=== PATIENT | male | born 1940 | race Caucasian/White ===

== ENCOUNTER 2019-02-04 22:17 | Inpatient (IN) ==
[2019-02-05] MEDS ORDERED: Levalbuterol 1 PUFF INHALER IH SCH (01:00)
[2019-02-05] MEDS: Levalbuterol Neb 1.25 MG/3 ML IH SCH ×7 (01:15→23:36)
[2019-02-05] MEDS ORDERED: Naloxone 0.4 MG/ML INJ IVP PRN (03:55)
[2019-02-05 04:28] LABS: VBG HCO3 35 mEq/L (21-27); VBG PCO2 43 mmHg (41-51); VBG PH 7.52 pH Units (7.32-7.42); VBG PO2 187 mmHg (25-50)
[2019-02-05 04:50] LABS: Hemoglobin 7.8 g/dL (12.9-16.9)
[2019-02-05 04:52] LABS: Calcium 8.9 mg/dL (8.6-10.3); Immature Granulocytes % 1.1 % (0-4); Lymphocytes # 0.2 K/mcL (0.6-4.6); Lymphocytes % 3.1 %; Mean Corpuscular HGB Conc 27.9 g/dL (31.6-35.5); Mean Corpuscular Hemoglobin 23.5 pg (28.0-33.3); Mean Corpuscular Volume 84.3 fL (83.0-100.0); Mean Platelet Volume 9.6 fL (9.4-12.4); Monocytes # 0.1 K/mcL (0.0-1.3); Nucleated Red Blood Cells 0.3 /100 WBC (0); Platelet Count 275 K/mcL (140-400); Potassium 4.6 mEq/L (3.5-5.1); Red Blood Count 3.32 M/mcL (4.19-5.50); Segmented Neutrophils % 94.8 %; Troponin I 0.03 ng/mL (< 0.04); White Blood Count 7.1 K/mcL (4.3-11.1)
[2019-02-05] MEDS ORDERED: Albuterol 2.5 MG/3 ML NEBULIZER IH PRN (04:58)
[2019-02-05 05:24] LABS: Neutrophils # 6.7 K/mcL (1.6-8.9)
[2019-02-05 05:25] LABS: Anisocytosis 1+ (Not Present); Hypochromasia Present (Not Present)
[2019-02-05 05:26] LABS: Platelet Estimate Normal (Normal); Polychromasia 1+ (Not Present)
[2019-02-05] MEDS: Metoprolol XL (24 HR) Succ 25 MG TAB.ER.24H PO SCH ×2 (05:31→18:11)
[2019-02-05] MEDS: *HR* LORazepam 2 MG/ML VIAL IVP PRN ×2 (05:52→18:21)
[2019-02-05] MEDS ORDERED: NON-FORMULARY MEDICATION 1 EACH EACH (Roflumilast [Daliresp] 500 MCG) PO SCH (09:00)
[2019-02-05] MEDS: Tiotropium 18 MCG inhalation IH SCH (09:49)
[2019-02-05] MEDS ORDERED: Dextrose Gel 15 GM/37.5 ML TUBE PO PRN ×2 (09:49)
[2019-02-05] MEDS ORDERED: *HR* Dextrose 50 % in Water (Syg) 50 ML SYRINGE IVP PRN (09:49)
[2019-02-05] MEDS: Budesonide/Formoterol 160/4.5 1 PUFF INH IH SCH ×2 (09:49→19:31)
[2019-02-05] MEDS ORDERED: D5% in Water 1,000 ML IVC PRN (09:49)
[2019-02-05] MEDS: Furosemide 40 MG/4 ML VIAL IVP SCH ×2 (10:02→18:11)
[2019-02-05] MEDS: Cholecalciferol (D-3) 1,000 UNIT (25MCG) TABLET PO SCH (10:03)
[2019-02-05] MEDS: Aspirin 81 MG TAB.CHEW PO SCH (10:03)
[2019-02-05] MEDS: *HR* Amiodarone 200 MG TABLET PO SCH (10:06)
[2019-02-05] MEDS: Isosorbide MONOnitrate (24 HR) 60 MG TAB.ER.24H PO SCH (10:11)
[2019-02-05] MEDS: Insulin LISPRO 300 UNITS/3 ML VIAL SQ SCH ×3 (13:36→22:21)
[2019-02-05] MEDS ORDERED: Insulin DETEMIR 100 UNIT/ML X5UNITS SQ SCH (21:00)
[2019-02-05] MEDS: Latanoprost 2.5 ML BOTTLE BOTH EYES SCH (22:21)
[2019-02-05] MEDS: Acetaminophen 325 MG TABLET PO PRN (23:03)
[2019-02-05] MEDS: Insulin DETEMIR 100 UNIT/ML X5UNITS SQ SCH (23:03)
[2019-02-05] MEDS: traZODone 50 MG TABLET PO PRN (23:04)
[2019-02-06] MEDS: *HR* LORazepam 2 MG/ML VIAL IVP PRN (01:56)
[2019-02-06] MEDS: Levalbuterol Neb 1.25 MG/3 ML IH SCH ×6 (03:46→23:34)
[2019-02-06 04:15] LABS: ABG Base Excess 12 mEq/L (-2 to 3); ABG HCO3 40 mEq/L (21-27); ABG Oxygen Saturation 86 % (95-98); ABG PCO2 84 mmHg (35-45); ABG PH 7.29 pH Units (7.32-7.45); ABG PO2 61 mmHg (85-104); ABG TCO2 43 mEq/L (20-26)
[2019-02-06 06:16] LABS: Basophils % 0.1 %; Eosinophils % 0.3 %
[2019-02-06 06:17] LABS: Hematocrit 27.2 % (37.5-50.1); Hemoglobin 7.6 g/dL (12.9-16.9); Immature Granulocytes % 0.4 % (0-4); Lymphocytes # 0.9 K/mcL (0.6-4.6); Lymphocytes % 11.3 %; Mean Corpuscular HGB Conc 27.9 g/dL (31.6-35.5); Mean Corpuscular Hemoglobin 23.5 pg (28.0-33.3); Mean Platelet Volume 9.9 fL (9.4-12.4); Monocytes # 0.6 K/mcL (0.0-1.3); Monocytes % 7.8 %; Neutrophils # 6.4 K/mcL (1.6-8.9); Nucleated Red Blood Cells 0.4 /100 WBC (0); Platelet Count 282 K/mcL (140-400); Red Blood Count 3.24 M/mcL (4.19-5.50); Red Cell Distribution Width 17.1 % (11.5-14.5); Segmented Neutrophils % 80.1 %
[2019-02-06 06:37] LABS: BUN/Creatinine Ratio 25 (6-26); Blood Urea Nitrogen 41 mg/dL (8-23); Calcium 8.6 mg/dL (8.6-10.3); Carbon Dioxide 36 mEq/L (23-29); Chloride 95 mEq/L (98-107); Glucose 125 mg/dL (70-105); Iron < 10 mcg/dL (65-175); Osmolality,Calculated 304 (280-300); Phosphorous 4.7 mg/dL (2.7-4.5); Potassium 4.7 mEq/L (3.5-5.1); Sodium 141 mEq/L (136-145); Transferrin 243 mg/dL (203-362); Troponin I 0.05 ng/mL (< 0.04); eGFR For African Americans 49 (> 60); eGFR For Non-African Americans 41 (> 60)
[2019-02-06 06:39] LABS: Anisocytosis 1+ (Not Present)
[2019-02-06 06:40] LABS: Hypochromasia Present (Not Present); Platelet Estimate Normal (Normal); Poikilocytosis 1+ (Not Present); Polychromasia 1+ (Not Present)
[2019-02-06] MEDS: Metoprolol XL (24 HR) Succ 25 MG TAB.ER.24H PO SCH ×2 (06:51→17:03)
[2019-02-06 06:58] LABS: Ferritin 43 ng/mL (20-250)
[2019-02-06 07:14] LABS: Folate 19.3 ng/mL (3.0-16.0)
[2019-02-06] MEDS: Budesonide/Formoterol 160/4.5 1 PUFF INH IH SCH ×2 (07:36→20:01)
[2019-02-06] MEDS: Tiotropium 18 MCG inhalation IH SCH (07:36)
[2019-02-06] MEDS ORDERED: Furosemide 40 MG TABLET PO SCH (08:00)
[2019-02-06] MEDS: Insulin LISPRO 300 UNITS/3 ML VIAL SQ SCH ×4 (08:02→22:18)
[2019-02-06] MEDS: Isosorbide MONOnitrate (24 HR) 60 MG TAB.ER.24H PO SCH (08:08)
[2019-02-06] MEDS: Aspirin 81 MG TAB.CHEW PO SCH (08:09)
[2019-02-06] MEDS: *HR* Amiodarone 200 MG TABLET PO SCH (08:09)
[2019-02-06] MEDS: Cholecalciferol (D-3) 1,000 UNIT (25MCG) TABLET PO SCH (08:09)
[2019-02-06 08:19] LABS: VBG HCO3 38 mEq/L (21-27); VBG PCO2 59 mmHg (41-51); VBG PH 7.42 pH Units (7.32-7.42); VBG PO2 193 mmHg (25-50)
[2019-02-06] MEDS: Iron Sucrose Complex 200 MG in 0.9 % Sodium Chloride 100 ML IVPB SCH (08:35)
[2019-02-06 09:24] LABS: Estimated Average Glucose 126 mg/dl
[2019-02-06] MEDS ORDERED: Furosemide 40 MG/4 ML VIAL IVP SCH (12:01)
[2019-02-06] MEDS: Furosemide 40 MG/4 ML VIAL IVP SCH ×2 (12:27→17:48)
[2019-02-06] MEDS ORDERED: NON-FORMULARY MEDICATION 1 EACH EACH (Trazodone Hcl 100 MG) PO SCH (21:00)
[2019-02-06] MEDS: Acetaminophen 325 MG TABLET PO PRN (22:17)
[2019-02-06] MEDS: Insulin DETEMIR 100 UNIT/ML X5UNITS SQ SCH (22:17)
[2019-02-06] MEDS: Latanoprost 2.5 ML BOTTLE BOTH EYES SCH (22:20)
[2019-02-06] MEDS: traZODone 50 MG TABLET PO PRN (23:22)
[2019-02-07 03:04] LABS: Basophils % 0.2 %; Eosinophils % 0.6 %
[2019-02-07 03:06] LABS: Hematocrit 23.7 % (37.5-50.1); Hemoglobin 6.6 g/dL (12.9-16.9); Immature Granulocytes % 0.6 % (0-4); Lymphocytes % 16.2 %; Mean Corpuscular HGB Conc 27.8 g/dL (31.6-35.5); Mean Corpuscular Hemoglobin 23.2 pg (28.0-33.3); Mean Corpuscular Volume 83.5 fL (83.0-100.0); Mean Platelet Volume 9.9 fL (9.4-12.4); Monocytes # 0.5 K/mcL (0.0-1.3); Monocytes % 7.9 %; Nucleated Red Blood Cells 0.6 /100 WBC (0); Platelet Count 241 K/mcL (140-400); Red Blood Count 2.84 M/mcL (4.19-5.50); Red Cell Distribution Width 17.3 % (11.5-14.5); Segmented Neutrophils % 74.5 %; White Blood Count 6.4 K/mcL (4.3-11.1)
[2019-02-07 03:24] LABS: Calcium 8.4 mg/dL (8.6-10.3); Magnesium 1.9 mg/dL (1.6-2.6); Phosphorous 3.6 mg/dL (2.7-4.5); Potassium 4.3 mEq/L (3.5-5.1)
[2019-02-07] MEDS: Levalbuterol Neb 1.25 MG/3 ML IH SCH ×6 (03:43→23:50)
[2019-02-07 03:52] LABS: Neutrophils # 4.8 K/mcL (1.6-8.9)
[2019-02-07 04:17] LABS: Anisocytosis 1+ (Not Present); Hypochromasia Present (Not Present); Macrocytosis Present (Not Present); Platelet Estimate Normal (Normal); Poikilocytosis 1+ (Not Present)
[2019-02-07 04:18] LABS: Polychromasia 1+ (Not Present)
[2019-02-07] MEDS: Metoprolol XL (24 HR) Succ 25 MG TAB.ER.24H PO SCH ×2 (05:20→18:11)
[2019-02-07] MEDS ORDERED: 0.9 % Sodium Chloride 250 ML ONE ×2 (05:32→10:32)
[2019-02-07] MEDS: Budesonide/Formoterol 160/4.5 1 PUFF INH IH SCH ×2 (07:40→19:44)
[2019-02-07] MEDS: Tiotropium 18 MCG inhalation IH SCH (07:41)
[2019-02-07] MEDS: Insulin LISPRO 300 UNITS/3 ML VIAL SQ SCH ×4 (08:11→20:15)
[2019-02-07] MEDS: Isosorbide MONOnitrate (24 HR) 60 MG TAB.ER.24H PO SCH (08:27)
[2019-02-07] MEDS: *HR* Amiodarone 200 MG TABLET PO SCH (08:27)
[2019-02-07] MEDS: Cholecalciferol (D-3) 1,000 UNIT (25MCG) TABLET PO SCH (08:27)
[2019-02-07] MEDS: Folic Acid 1 MG TABLET PO SCH (08:27)
[2019-02-07] MEDS: Aspirin 81 MG TAB.CHEW PO SCH (08:31)
[2019-02-07] MEDS ORDERED: Furosemide 40 MG/4 ML VIAL IVP SCH (09:00)
[2019-02-07] MEDS: Iron Sucrose Complex 200 MG in 0.9 % Sodium Chloride 100 ML IVPB SCH (12:09)
[2019-02-07] MEDS: Ipratropium Neb 0.5 MG NEBULIZER IH SCH ×3 (15:45→19:44)
[2019-02-07 16:40] LABS: Hematocrit 30.5 % (37.5-50.1)
[2019-02-07 16:49] LABS: Hemoglobin 8.7 g/dL (12.9-16.9)
[2019-02-07 18:52] LABS: INR 1.2; Prothrombin Time 13.2 Seconds (9.4-12.1)
[2019-02-07] MEDS: Pantoprazole 40 MG VIAL IVP SCH (20:19)
[2019-02-07] MEDS: Insulin DETEMIR 100 UNIT/ML X5UNITS SQ SCH (20:19)
[2019-02-07] MEDS: Latanoprost 2.5 ML BOTTLE BOTH EYES SCH (20:22)
[2019-02-07] MEDS: traZODone 50 MG TABLET PO PRN (21:47)
[2019-02-07 22:51] LABS: Hematocrit 29.1 % (37.5-50.1); Hemoglobin 8.5 g/dL (12.9-16.9)
[2019-02-08 01:18] LABS: Basophils % 0.2 %; Mean Corpuscular HGB Conc 28.6 g/dL (31.6-35.5); Nucleated Red Blood Cells 0.3 /100 WBC (0)
[2019-02-08 01:19] LABS: Eosinophils # 0.1 K/mcL (0.0-0.6); Eosinophils % 1.1 %; Hematocrit 28.3 % (37.5-50.1); Hemoglobin 8.1 g/dL (12.9-16.9); Immature Granulocytes % 0.7 % (0-4); Lymphocytes # 0.9 K/mcL (0.6-4.6); Lymphocytes % 14.3 %; Mean Corpuscular Hemoglobin 23.9 pg (28.0-33.3); Mean Corpuscular Volume 83.5 fL (83.0-100.0); Monocytes # 0.5 K/mcL (0.0-1.3); Monocytes % 7.7 %; Neutrophils # 4.6 K/mcL (1.6-8.9); Platelet Count 216 K/mcL (140-400); Red Blood Count 3.39 M/mcL (4.19-5.50); Red Cell Distribution Width 16.7 % (11.5-14.5); White Blood Count 6.1 K/mcL (4.3-11.1)
[2019-02-08 01:39] LABS: BUN/Creatinine Ratio 33 (6-26); Blood Urea Nitrogen 45 mg/dL (8-23); Calcium 8.4 mg/dL (8.6-10.3); Carbon Dioxide 35 mEq/L (23-29); Chloride 101 mEq/L (98-107); Glucose 111 mg/dL (70-105); Osmolality,Calculated 298 (280-300); Potassium 4.3 mEq/L (3.5-5.1); Sodium 138 mEq/L (136-145); eGFR For African Americans > 60 (> 60); eGFR For Non-African Americans 50 (> 60)
[2019-02-08 02:00] LABS: Anisocytosis 1+ (Not Present); Hypochromasia Present (Not Present); Platelet Estimate Normal (Normal); Polychromasia 1+ (Not Present)
[2019-02-08] MEDS: Ipratropium Neb 0.5 MG NEBULIZER IH SCH ×4 (04:02→22:18)
[2019-02-08] MEDS: Levalbuterol Neb 1.25 MG/3 ML IH SCH ×5 (04:02→22:18)
[2019-02-08] MEDS ORDERED: *HR* LORazepam 2 MG/ML VIAL IVP ONE (05:19)
[2019-02-08] MEDS: Pantoprazole 40 MG VIAL IVP SCH ×2 (05:33→17:25)
[2019-02-08] MEDS: Metoprolol XL (24 HR) Succ 25 MG TAB.ER.24H PO SCH ×2 (05:33→17:25)
[2019-02-08 06:06] LABS: Immature Granulocytes % 0.5 % (0-4); Mean Platelet Volume 9.3 fL (9.4-12.4); Platelet Count 222 K/mcL (140-400); Red Cell Distribution Width 16.8 % (11.5-14.5)
[2019-02-08 06:07] LABS: Basophils % 0.2 %; Eosinophils # 0.1 K/mcL (0.0-0.6); Eosinophils % 1.4 %; Hematocrit 29.4 % (37.5-50.1); Hemoglobin 8.4 g/dL (12.9-16.9); Lymphocytes # 0.8 K/mcL (0.6-4.6); Lymphocytes % 14.1 %; Mean Corpuscular HGB Conc 28.6 g/dL (31.6-35.5); Monocytes # 0.4 K/mcL (0.0-1.3); Monocytes % 7.7 %; Segmented Neutrophils % 76.1 %; White Blood Count 5.6 K/mcL (4.3-11.1)
[2019-02-08 06:08] LABS: Neutrophils # 4.3 K/mcL (1.6-8.9)
[2019-02-08 06:24] LABS: Anisocytosis 1+ (Not Present); Hypochromasia Present (Not Present); Platelet Estimate Normal (Normal); Polychromasia 1+ (Not Present)
[2019-02-08] MEDS: Tiotropium 18 MCG inhalation IH SCH (07:39)
[2019-02-08] MEDS: Budesonide/Formoterol 160/4.5 1 PUFF INH IH SCH ×2 (07:39→22:18)
[2019-02-08] MEDS: Insulin LISPRO 300 UNITS/3 ML VIAL SQ SCH ×4 (09:16→20:02)
[2019-02-08] MEDS: *HR* Amiodarone 200 MG TABLET PO SCH (09:34)
[2019-02-08] MEDS: Folic Acid 1 MG TABLET PO SCH (09:34)
[2019-02-08] MEDS: Aspirin 81 MG TAB.CHEW PO SCH (09:34)
[2019-02-08] MEDS: Cholecalciferol (D-3) 1,000 UNIT (25MCG) TABLET PO SCH (09:34)
[2019-02-08] MEDS: Isosorbide MONOnitrate (24 HR) 60 MG TAB.ER.24H PO SCH (09:34)
[2019-02-08 10:06] LABS: Hematocrit 31.4 % (37.5-50.1); Hemoglobin 8.8 g/dL (12.9-16.9)
[2019-02-08 11:47] LABS: ABG Base Excess 15 mEq/L (-2 to 3); ABG HCO3 42 mEq/L (21-27); ABG Oxygen Saturation 95 % (95-98); ABG PCO2 62 mmHg (35-45); ABG PH 7.44 pH Units (7.32-7.45); ABG PO2 76 mmHg (85-104); ABG TCO2 44 mEq/L (20-26)
[2019-02-08 11:50] LABS: INR 1.2; Prothrombin Time 13.1 Seconds (9.4-12.1)
[2019-02-08] MEDS ORDERED: Levalbuterol Neb 1.25 MG/3 ML ONE (15:35)
[2019-02-08 16:25] LABS: Hematocrit 32.3 % (37.5-50.1); Hemoglobin 9.1 g/dL (12.9-16.9)
[2019-02-08] MEDS: Piperacillin/Tazobactam 3.375 GM in 0.9 % Sodium Chloride Mini Bag 100 ML IVPB SCH ×2 (17:25→23:58)
[2019-02-08] MEDS: Insulin DETEMIR 100 UNIT/ML X5UNITS SQ SCH (20:12)
[2019-02-08] MEDS: Latanoprost 2.5 ML BOTTLE BOTH EYES SCH (20:14)
[2019-02-08] MEDS ORDERED: Levalbuterol Neb 1.25 MG/3 ML IH SCH (22:00)
[2019-02-08 22:39] LABS: Hematocrit 30.8 % (37.5-50.1); Hemoglobin 8.7 g/dL (12.9-16.9)
[2019-02-08] MEDS: traZODone 50 MG TABLET PO PRN (22:40)
[2019-02-09 02:19] LABS: Basophils % 0.2 %; Hematocrit 29.4 % (37.5-50.1); Hemoglobin 8.2 g/dL (12.9-16.9); Immature Granulocytes % 0.5 % (0-4); Mean Corpuscular HGB Conc 27.9 g/dL (31.6-35.5); Mean Platelet Volume 9.7 fL (9.4-12.4)
[2019-02-09 02:20] LABS: Eosinophils # 0.1 K/mcL (0.0-0.6); Eosinophils % 1.3 %; Lymphocytes # 0.8 K/mcL (0.6-4.6); Lymphocytes % 13.1 %; Mean Corpuscular Hemoglobin 24.1 pg (28.0-33.3); Mean Corpuscular Volume 86.5 fL (83.0-100.0); Monocytes # 0.4 K/mcL (0.0-1.3); Monocytes % 7.4 %; Nucleated Red Blood Cells 0.3 /100 WBC (0); Platelet Count 209 K/mcL (140-400); Red Cell Distribution Width 17.2 % (11.5-14.5); Segmented Neutrophils % 77.5 %
[2019-02-09 02:22] LABS: Neutrophils # 4.7 K/mcL (1.6-8.9)
[2019-02-09 02:24] LABS: INR 1.2; Prothrombin Time 13.3 Seconds (9.4-12.1)
[2019-02-09 02:33] LABS: Calcium 8.1 mg/dL (8.6-10.3); Magnesium 2.1 mg/dL (1.6-2.6); Potassium 4.4 mEq/L (3.5-5.1)
[2019-02-09 02:44] LABS: Anisocytosis 1+ (Not Present); Basophilic Stippling 1+ (Not Present); Hypochromasia Present (Not Present); Platelet Estimate Normal (Normal); Polychromasia 2+ (Not Present)
[2019-02-09] MEDS: Ipratropium Neb 0.5 MG NEBULIZER IH SCH ×4 (04:11→22:33)
[2019-02-09] MEDS: Levalbuterol Neb 1.25 MG/3 ML IH SCH ×4 (04:11→22:33)
[2019-02-09] MEDS: Pantoprazole 40 MG VIAL IVP SCH ×2 (05:45→17:22)
[2019-02-09] MEDS: Metoprolol XL (24 HR) Succ 25 MG TAB.ER.24H PO SCH ×2 (05:45→17:22)
[2019-02-09] MEDS ORDERED: *HR* Rocuronium Bromide 50 MG/5 ML VIAL ONE (07:22)
[2019-02-09] MEDS ORDERED: Dexamethasone 4 MG/ML VIAL ONE (07:22)
[2019-02-09] MEDS ORDERED: *HR* Propofol 200 MG/20 ML VIAL IVP ONE (07:22)
[2019-02-09] MEDS ORDERED: Lidocaine -MPF 2% 2 ML VIAL ONE (07:22)
[2019-02-09] MEDS ORDERED: *HR* Succinylcholine 200 MG/10 ML VIAL IVP ONE (07:22)
[2019-02-09] MEDS ORDERED: Lidocaine -MPF 4% 5 ML AMPUL ONE (07:22)
[2019-02-09] MEDS ORDERED: Ondansetron 4 MG/2 ML VIAL ONE (07:22)
[2019-02-09] MEDS ORDERED: *HR* FentaNYL (PF) 100 MCG/2 ML VIAL ONE (07:28)
[2019-02-09] MEDS: Insulin LISPRO 300 UNITS/3 ML VIAL SQ SCH ×4 (08:24→20:39)
[2019-02-09] MEDS: Isosorbide MONOnitrate (24 HR) 60 MG TAB.ER.24H PO SCH (08:35)
[2019-02-09] MEDS: *HR* Amiodarone 200 MG TABLET PO SCH (08:35)
[2019-02-09] MEDS: Cholecalciferol (D-3) 1,000 UNIT (25MCG) TABLET PO SCH (08:35)
[2019-02-09] MEDS: Folic Acid 1 MG TABLET PO SCH (08:35)
[2019-02-09] MEDS: Piperacillin/Tazobactam 3.375 GM in 0.9 % Sodium Chloride Mini Bag 100 ML IVPB SCH ×3 (08:35→23:10)
[2019-02-09] MEDS: Aspirin 81 MG TAB.CHEW PO SCH (08:35)
[2019-02-09] MEDS: Budesonide/Formoterol 160/4.5 1 PUFF INH IH SCH ×2 (10:09→22:33)
[2019-02-09] MEDS: Tiotropium 18 MCG inhalation IH SCH (10:09)
[2019-02-09] MEDS ORDERED: EPHEDrine 50 MG/ML VIAL ONE (12:04)
[2019-02-09 12:39] LABS: Source of Body Fluid LLL BAL; Source of Body Fluid RLL BAL
[2019-02-09] MEDS: Latanoprost 2.5 ML BOTTLE BOTH EYES SCH (20:40)
[2019-02-09] MEDS: Insulin DETEMIR 100 UNIT/ML X5UNITS SQ SCH (20:40)
[2019-02-09 20:53] LABS: Appearance of Body Fluid Hazy (Clear); Volume of Body Fluid 10 mL
[2019-02-09 21:13] LABS: Appearance of Body Fluid Cloudy (Clear); Volume of Body Fluid 18 mL
[2019-02-10] MEDS: Ipratropium Neb 0.5 MG NEBULIZER IH SCH ×4 (03:59→22:18)
[2019-02-10] MEDS: Levalbuterol Neb 1.25 MG/3 ML IH SCH ×4 (03:59→22:18)
[2019-02-10 04:31] LABS: Mean Corpuscular Hemoglobin 23.9 pg (28.0-33.3); Nucleated Red Blood Cells 0.3 /100 WBC (0); White Blood Count 5.9 K/mcL (4.3-11.1)
[2019-02-10 04:32] LABS: Basophils % 0.2 %; Hematocrit 30.9 % (37.5-50.1); Hemoglobin 8.2 g/dL (12.9-16.9); Immature Granulocytes % 0.5 % (0-4); Lymphocytes # 0.7 K/mcL (0.6-4.6); Mean Corpuscular HGB Conc 26.5 g/dL (31.6-35.5); Mean Corpuscular Volume 90.1 fL (83.0-100.0); Mean Platelet Volume 9.7 fL (9.4-12.4); Monocytes # 0.3 K/mcL (0.0-1.3); Monocytes % 5.8 %; Neutrophils # 4.9 K/mcL (1.6-8.9); Platelet Count 187 K/mcL (140-400); Red Blood Count 3.43 M/mcL (4.19-5.50); Red Cell Distribution Width 17.1 % (11.5-14.5); Segmented Neutrophils % 82.5 %
[2019-02-10 04:52] LABS: Calcium 8.5 mg/dL (8.6-10.3); Magnesium 2.3 mg/dL (1.6-2.6); Potassium 5.5 mEq/L (3.5-5.1)
[2019-02-10 04:53] LABS: Hypochromasia Present (Not Present); Ovalocytes 2+ (Not Present); Platelet Estimate Slight Decrease (Normal); Stomatocytes 2+ (Not Present); Tear Drop Cells 2+ (Not Present)
[2019-02-10] MEDS: Pantoprazole 40 MG VIAL IVP SCH ×2 (05:06→17:53)
[2019-02-10] MEDS: Metoprolol XL (24 HR) Succ 25 MG TAB.ER.24H PO SCH ×2 (05:07→17:53)
[2019-02-10] MEDS: Insulin LISPRO 300 UNITS/3 ML VIAL SQ SCH ×4 (07:51→20:19)
[2019-02-10] MEDS: Cholecalciferol (D-3) 1,000 UNIT (25MCG) TABLET PO SCH (07:52)
[2019-02-10] MEDS: Folic Acid 1 MG TABLET PO SCH (07:52)
[2019-02-10] MEDS: *HR* Amiodarone 200 MG TABLET PO SCH (07:53)
[2019-02-10] MEDS: Piperacillin/Tazobactam 3.375 GM in 0.9 % Sodium Chloride Mini Bag 100 ML IVPB SCH ×3 (07:53→23:24)
[2019-02-10] MEDS: Aspirin 81 MG TAB.CHEW PO SCH (07:53)
[2019-02-10] MEDS: Isosorbide MONOnitrate (24 HR) 60 MG TAB.ER.24H PO SCH (09:37)
[2019-02-10] MEDS: Budesonide/Formoterol 160/4.5 1 PUFF INH IH SCH ×2 (11:03→22:17)
[2019-02-10] MEDS: Acetylcysteine 10% 2 ML INHSOL IH SCH ×3 (11:03→22:19)
[2019-02-10] MEDS: Tiotropium 18 MCG inhalation IH SCH (11:39)
[2019-02-10] MEDS ORDERED: SODIUM CHLORIDE/NAHCO3/KCL/PEG 4,000 ML SOLN.RECON PO ONE (17:00)
[2019-02-10] MEDS: Insulin DETEMIR 100 UNIT/ML X5UNITS SQ SCH (20:23)
[2019-02-10] MEDS: Latanoprost 2.5 ML BOTTLE BOTH EYES SCH (20:27)
[2019-02-10] MEDS: traZODone 50 MG TABLET PO PRN (21:29)
[2019-02-11] MEDS ORDERED: traZODone 50 MG TABLET PO PRN (00:07)
[2019-02-11] MEDS ORDERED: Furosemide 40 MG/4 ML VIAL IVP ONE (03:30)
[2019-02-11 04:24] LABS: Basophils % 0.1 %; Eosinophils % 0.6 %; Red Cell Distribution Width 17.3 % (11.5-14.5)
[2019-02-11 04:26] LABS: Hematocrit 30.9 % (37.5-50.1); Hemoglobin 8.3 g/dL (12.9-16.9); Lymphocytes # 0.7 K/mcL (0.6-4.6); Lymphocytes % 9.5 %; Mean Corpuscular HGB Conc 26.9 g/dL (31.6-35.5); Mean Corpuscular Hemoglobin 24.3 pg (28.0-33.3); Mean Corpuscular Volume 90.4 fL (83.0-100.0); Mean Platelet Volume 9.6 fL (9.4-12.4); Monocytes # 0.6 K/mcL (0.0-1.3); Monocytes % 8.3 %; Platelet Count 178 K/mcL (140-400); Red Blood Count 3.42 M/mcL (4.19-5.50); Segmented Neutrophils % 80.5 %
[2019-02-11 04:33] LABS: Neutrophils # 5.6 K/mcL (1.6-8.9)
[2019-02-11 04:39] LABS: Calcium 8.4 mg/dL (8.6-10.3); Potassium 4.9 mEq/L (3.5-5.1)
[2019-02-11] MEDS: Levalbuterol Neb 1.25 MG/3 ML IH SCH ×4 (04:46→22:00)
[2019-02-11] MEDS: Ipratropium Neb 0.5 MG NEBULIZER IH SCH ×4 (04:46→22:00)
[2019-02-11] MEDS: Acetylcysteine 10% 2 ML INHSOL IH SCH ×4 (04:47→22:00)
[2019-02-11 04:56] LABS: Anisocytosis 1+ (Not Present); Hypochromasia Present (Not Present); Ovalocytes 1+ (Not Present); Polychromasia 1+ (Not Present)
[2019-02-11 04:57] LABS: Platelet Estimate Normal (Normal)
[2019-02-11 04:58] LABS: Microcytosis Present (Not Present); Stomatocytes 1+ (Not Present)
[2019-02-11] MEDS: Metoprolol XL (24 HR) Succ 25 MG TAB.ER.24H PO SCH ×2 (05:37→17:04)
[2019-02-11] MEDS: Pantoprazole 40 MG VIAL IVP SCH ×2 (05:37→17:03)
[2019-02-11] MEDS: Insulin LISPRO 300 UNITS/3 ML VIAL SQ SCH ×3 (08:52→16:56)
[2019-02-11] MEDS: Aspirin 81 MG TAB.CHEW PO SCH (08:53)
[2019-02-11] MEDS: Folic Acid 1 MG TABLET PO SCH (08:53)
[2019-02-11] MEDS: *HR* Amiodarone 200 MG TABLET PO SCH (08:53)
[2019-02-11] MEDS: Isosorbide MONOnitrate (24 HR) 60 MG TAB.ER.24H PO SCH (08:53)
[2019-02-11] MEDS: Piperacillin/Tazobactam 3.375 GM in 0.9 % Sodium Chloride Mini Bag 100 ML IVPB SCH ×2 (08:54→17:02)
[2019-02-11] MEDS: Cholecalciferol (D-3) 1,000 UNIT (25MCG) TABLET PO SCH (08:54)
[2019-02-11] MEDS ORDERED: Aminoglycoside Consult 1 EACH MC ONE (08:56)
[2019-02-11] MEDS: Acetaminophen 325 MG TABLET PO PRN (08:57)
[2019-02-11] MEDS: Tiotropium 18 MCG inhalation IH SCH (09:32)
[2019-02-11] MEDS: Budesonide/Formoterol 160/4.5 1 PUFF INH IH SCH ×2 (09:33→22:00)
[2019-02-11] MEDS ORDERED: Morphine Sulfate Oral CONC 10 MG/0.5 ML ORAL.SYG SL PRN (16:36)
[2019-02-11] MEDS ORDERED: *HR* LORazepam 2 MG/ML VIAL IVP PRN (16:36)
[2019-02-11] MEDS: Latanoprost 2.5 ML BOTTLE BOTH EYES SCH (19:56)
[2019-02-11] MEDS: *HR* LORazepam Oral Conc 2 MG/ML SL PRN (20:25)
[2019-02-12] MEDS: Acetylcysteine 10% 2 ML INHSOL IH SCH ×2 (04:12→09:39)
[2019-02-12] MEDS: Ipratropium Neb 0.5 MG NEBULIZER IH SCH ×2 (04:12→09:39)
[2019-02-12] MEDS: Levalbuterol Neb 1.25 MG/3 ML IH SCH ×2 (04:12→09:39)
[2019-02-12] MEDS: Metoprolol XL (24 HR) Succ 25 MG TAB.ER.24H PO SCH (06:39)
[2019-02-12 07:31] VITALS: BP 115/59
[2019-02-12] MEDS: *HR* LORazepam Oral Conc 2 MG/ML SL PRN (08:14)
[2019-02-12] MEDS: Aspirin 81 MG TAB.CHEW PO SCH (08:15)
[2019-02-12] MEDS: Cholecalciferol (D-3) 1,000 UNIT (25MCG) TABLET PO SCH (08:15)
[2019-02-12] MEDS: Isosorbide MONOnitrate (24 HR) 60 MG TAB.ER.24H PO SCH (08:15)
[2019-02-12] MEDS: Folic Acid 1 MG TABLET PO SCH (08:15)
[2019-02-12] MEDS: *HR* Amiodarone 200 MG TABLET PO SCH (08:15)
[2019-02-12] MEDS: Tiotropium 18 MCG inhalation IH SCH (09:40)
[2019-02-12] MEDS: Budesonide/Formoterol 160/4.5 1 PUFF INH IH SCH (09:40)
== END 2019-02-12 13:39 | disposition hospice, inpatient (51) | DRG 291 ==
LOC: 2NNU → SUATTDRO 23:43 → 2ANU 02-05 17:22 → 2NNU 02-07 19:06
PROVIDERS: ADMIT Internal Medicine Nephrology; ATTEND Pharmacist